=== PATIENT | female | born 1950 | race African-American/Black ===

== ENCOUNTER → 2020-07-11 | Outpatient (CLI) | payer OTHER ==
--- NOTE | 2020-07-12 09:55 | EKG ---
[facility] [place] [address] ELECTROCARDIOGRAM REPORT Name: WAYNE OH Room #: [facility]#: [id number] Admission: 07/11/20 Attend Phys: Meg Leavitt DO Discharge: Date of : 48 Report #: [id number] THIS REPORT FOR: cc: Meg Leavitt, Meg Casillas,Noé Frank MD [facility] THIS REPORT FOR: //name// [facility] Test Date: 2020-07-11 Test Time: 12:35:42 Pat Name: WAYNE OH Department: Room: Gender: [employer]: : 1950 Requested By: Meg Leavitt Order Number: [id number] MD: Noé Rios Measurements Intervals [place] Rate: 69 P: 36 TN: 193 QRS: 21 QRSD: 84 T: 33 QT: 376 QTc: 403 Interpretive Statements Sinus rhythm No significant abnormality No previous ECG available for comparison Electronically Signed On 07-12-2020 9:54:53 CDT by Noé Rios [email or web address] <ELECTRONICALLY SIGNED> By: Noé Rios MD, [facility] 07/12/20 0954 1235 1235 Noé Rios MD, FACC /EPI
== END ==
LOC: EDBD 12:03 → CV 12:03
DX: I49.9 Cardiac arrhythmia, unspecified (principal); I10 Essential (primary) hypertension; E66.3 Overweight

== ENCOUNTER 2020-07-23 07:25 | Emergency (ER) | payer OTHER ==
[~2020-07-23] VITALS: Ht 152.4 cm; Wt 73.5 kg
[2020-07-23] MEDS ORDERED: OXYBUTYNIN 5 MG5 M2 PO (07:46)
[2020-07-23] MEDS ORDERED: GLYCOPYRROLATE 11 MG PO (07:46)
[2020-07-23 08:03] LABS: ABSOLUTE NEUTROPHILS 1.9 thou/uL (1.4-8.2); EOSINOPHILS 1.9 % (0.0-3.0); HEMATOCRIT 36.6 % (37.0-47.0); HEMOGLOBIN 12.2 gm/dL (12.0-15.0); LYMPHOCYTES 50.1 % (24.0-44.0); MCH 27.8 pg (26.0-34.0); MCHC 33.3 g/dL (28.0-37.0); MCV 83.6 fL (80.0-100.0); MONOCYTES 5.2 % (1.0-8.0); PLATELET COUNT 299 thou/uL (150-400); POLYS 41.8 % (36.0-66.0); RBC 4.38 mil/uL (4.20-5.00); RDW 14.1 % (10.5-14.5); WBC 4.5 thou/uL (4.0-11.0)
[2020-07-23 08:39] LABS: CALCIUM 9.4 mg/dL (8.5-10.1); CREATININE 0.9 mg/dL (0.6-1.0); POTASSIUM 3.6 mmol/L (3.5-5.1)
[2020-07-23 08:43] LABS: URINE BILIRUBIN NEGATIVE (Negative); URINE BLOOD TRACE (Negative); URINE COLOR YELLOW; URINE GLUCOSE-RANDOM* NEGATIVE (Negative); URINE KETONES NEGATIVE (Negative); URINE PROTEIN (DIPSTICK) NEGATIVE (Negative); URINE UROBILINOGEN 0.2 E.U./dl (0.2-1.0)
[2020-07-23 08:44] LABS: URINE CLARITY SL HAZY; URINE LEUKOCYTES-REFLEX 3+ (Negative); URINE NITRITE-REFLEX POSITIVE (Negative)
[2020-07-23 08:45] LABS: ALBUMIN 3.7 g/dL (3.4-5.0); TOTAL BILIRUBIN 0.2 mg/dL (0.2-1.0); TOTAL PROTEIN 7.6 g/dL (6.4-8.2)
[2020-07-23 08:53] LABS: CASTS None Seen /LPF (None Seen); CRYSTALS None Seen /LPF (None Seen); SQUAMOUS 4-10 Moderate /LPF (0-3)
[2020-07-23 08:56] LABS: BACTERIA-REFLEX >30 Many /HPF (None Seen); URINE RBC None Seen /HPF (0-2); URINE WBC-REFLEX 6-15 Few /HPF (0-5)
[2020-07-23] MEDS ORDERED: KEFLEX500 M1 PO (09:31)
[2020-07-23 09:55] VITALS: BP 137/67
== END 2020-07-23 09:55 | disposition home or self-care (01) ==
LOC: ER 07:25
PROVIDERS: Emergency Medicine
DX: N39.0 Urinary tract infection, site not specified (principal); I10 Essential (primary) hypertension; E78.5 Hyperlipidemia, unspecified; Z79.899 Other long term (current) drug therapy